=== PATIENT | male | born 1965 | race Caucasian/White ===

== ENCOUNTER 2020-11-27 08:26 | Emergency (ER) | payer MEDICAID, OTHER ==
[~2020-11-27] VITALS: Ht 185.4 cm; Wt 104.3 kg
[2020-11-27] MEDS ORDERED: HYDROcodone-ACET 5/325MG TAB PO ONE (10:45)
[2020-11-27 11:16] VITALS: BP 159/88
== END 2020-11-27 11:19 | disposition home or self-care (01) ==
LOC: ER 08:26
DX: G89.29 Other chronic pain (principal); M25.511 Pain in right shoulder; I10 Essential (primary) hypertension; F17.210 Nicotine dependence, cigarettes, uncomplicated; Z76.0 Encounter for issue of repeat prescription

== ENCOUNTER 2020-12-13 14:50 | Emergency (ER) | payer MEDICAID ==
[~2020-12-13] VITALS: Ht 185.4 cm; Wt 104.3 kg
[2020-12-13 14:50] VITALS: BP 110/59
[2020-12-13] MEDS ORDERED: methylPREDNISolone SOD SUCC 125 MG/2 ML VL IM ONE (15:00)
== END 2020-12-13 15:41 | disposition home or self-care (01) ==
LOC: ER 14:50
DX: S43.422D Sprain of left rotator cuff capsule, subsequent encounter (principal); G89.29 Other chronic pain; M25.512 Pain in left shoulder; I10 Essential (primary) hypertension; F17.210 Nicotine dependence, cigarettes, uncomplicated; X58.XXXD Exposure to other specified factors, subsequent encounter
CPT/HCPCS: 96372; 99283; J2930